=== PATIENT | female | born 1950 | race Caucasian/White ===

== ENCOUNTER → 2016-10-15 | Outpatient (CLI) | payer OTHER, MEDICARE ==
--- NOTE | 2016-10-15 12:39 | MA ---
Screening Digital Mammogram With Tomosynthesis Clinical Indications: Routine screening. Technique: Standard digital cephalocaudal and tomosynthesis mediolateral oblique projections are obt ained. The digital images are processed by the [employer] computer aided detection system. Comparison: September 2015, August 2014 and July 2013 Breast density: C; The breast tissue is heterogeneously dense, which could obscure detection of small masses. Findings: CAD was reviewed. No suspicious findings are identified. Impression: Negative mammogram. BI-RADS 1. Recommendation: Routine screening is recommended in one year, as long as physical examination is moni ign in this patient with moderately dense breast parenchyma. [facility] will send a result letter to the patient. Negative mammography should not preclude additional workup of a clinically suspicious finding. The patient's information is entered into a reminder system with a target due date for her next mammo gram.
== END ==
LOC: FIMAGING 10:24
PROVIDERS: ATTEND Internal Medicine
DX: Z12.31 Encounter for screening mammogram for malignant neoplasm of breast (principal)
CPT/HCPCS: G0202

== ENCOUNTER → 2017-12-08 | Outpatient (CLI) | payer OTHER, MEDICARE | LOC: FIMAGING 11:53 | PROVIDERS: ATTEND Internal Medicine | DX: Z12.31 Encounter for screening mammogram for malignant neoplasm of breast (principal) ==

== ENCOUNTER → 2018-07-20 | Outpatient (CLI) | payer OTHER, MEDICARE ==
[~2018-07-20] MED LIST: IOPAMIDOL (ISOVUE 370) 100 ML BTL IV ONE
== END ==
LOC: FIMAGING 10:57
PROVIDERS: ATTEND Internal Medicine
DX: R91.8 Other nonspecific abnormal finding of lung field (principal); R06.00 Dyspnea, unspecified; R09.02 Hypoxemia
CPT/HCPCS: 71275; Q9967; 82565-PO

== ENCOUNTER → 2018-07-28 | Outpatient (CLI) | payer OTHER, MEDICARE ==
--- NOTE | 2018-07-28 17:40 | ECHO ---
[email or web address] [place] [id number] Main: [phone] Fax: Transthoracic Echocardiogram Name: SHERIDAN SOMMER MR#: [id number] Study Date: 07/28/2018 Study Time: 02:02 PM Date of : 1950 Age: 67 year(s) Height: 165.1 cm (65 in.) Weight: 61.24 kg (135 lb.) BSA: 1.67 m2 Gender: Female Examination: Echo Indication: Shortness of breath, hypoxemia Image Quality: Adequate Contrast: Requested by: Noel Carrera BP: / Heart Rate: Rhythm: Indication: Shortness of breath, hypoxemia Procedure Staff Dope Mixer: Tori Liao [facility] Reading Physician: Juan Morales MD Requesting Provider: Conclusions: Normal size left ventricle. No LV hypertrophy. Normal global systolic LV function. EF is 69 %. No regional wall motion abnormality. Normal diastolic LV function. Normal size right ventricle. Normal RV function. The left atrium is normal in size. The right atrium is normal in size. The mitral valve is normal in appearance and function. Trivial mitral valve regurgitation. No mitral stenosis is present. The aortic valve is tri-leaflet and functions normally. Mild aortic valve regurgitation is present. No aortic valve stenosis is present. The tricuspid valve is normal in appearance and function. Mild to moderate tricuspid valve regurgitation. Right ventricular systolic pressure measures 28mmHg. The pulmonary artery pressure is normal. The pulmonic valve is normal in appearance and function. There is no pulmonic regurgitation seen. The aorta is normal. Normal size aortic root measuring 2.4 cm. Normal size and course of the IVC. No pericardial effusion. A cause for the patient's hypoxemia is not identified on the basis of this study. Findings as noted. Measurements: Patient: SHERIDAN SOMMER Study Date: 07/28/2018 Page 1 of 3 02:02 PM Chambers Valvular Assessment AV/MV Valvular Assessment TV/PV Normal Normal Normal Name Value Range Name Value Range Name Value Range Ao Jenny (MM): 2.4 cm (2.2 cm-3.7 AV Vmax: 1.33 m/s (1 m/s-1.7 TR Vmax: 2.41 mm/s ( - ) cm) m/s) TR PGmax: 23 mmHg ( - ) IVSd (2D): 0.7 cm (0.6 cm-1.1 AV maxP mmHg ( - ) syst. PAP: 28 mmHg ( - ) cm) LVOT Vmax: 1.08 m/s (0.7 m/s-1.1 PV Vmax: 0.83 m/s (0.6 m/s-0.9 LVDd (2D): 3.5 cm (3.9 cm-5.3 m/s) m/s) cm) RIC (Vmax): 2.3 cm2 ( - ) PV PGmax: 3 mmHg ( - ) LVDs (2D): 2.3 cm (2.1 cm-4 AR (PHT): 880 ms ( - ) cm) MV E Vmax: 0.82 m/s ( - ) LVPWd (2D): 0.8 cm ( - ) MV A Vmax: 0.81 m/s ( - ) LVOTd 1.9 cm 1.9 cm mm MV E/A: 1.01 ( - ) LVEF (BP): 69 % (>=55 %) RVDd(2D): 2.7 cm (1.9 cm-3.8 cmmm) Continued Measurements: Chambers Valvular Assessment AV/MV Valvular Assessment TV/PV Name Value Name Value Name Value LADs Lon.5 cm MV DecTime: 215 m/s CVP (est.): 5 mmHg LA Area: 13.9 cm2 MV E' Septal: 0.09 m/s LA Volume: 33 ml MV E/E' Septal: 9.30 LA Volume Index: 19.8 ml/m2 MV E/E' Lateral: 5.80 TAPSE: 2.0 cm AR Vmax: 3.97 cm/s RA Area: 12.8 cm2 Findings: Left Ventricle: Normal size left ventricle. No LV hypertrophy. Normal global systolic LV function. EF is 69 %. No regional wall motion abnormality. Normal diastolic LV function. Right Ventricle: Normal size right ventricle. Normal RV function. Left Atrium: The left atrium is normal in size. Right Atrium: The right atrium is normal in size. Mitral Valve: The mitral valve is normal in appearance and function. Trivial mitral valve regurgitation. No mitral stenosis is present. Aortic Valve: The aortic valve is tri-leaflet and functions normally. Mild aortic valve regurgitation is present. No aortic valve stenosis is present. Tricuspid Valve: The tricuspid valve is normal in appearance and function. Mild to moderate tricuspid valve regurgitation. Right ventricular systolic pressure measures 28mmHg. The pulmonary artery pressure is normal. Pulmonic Valve: The pulmonic valve is normal in appearance and function. There is no pulmonic regurgitation seen. Aorta: The aorta is normal. Normal size aortic root measuring 2.4 cm. IVC: Normal size and course of the IVC. Pericardium: No pericardial effusion. Patient: SHERIDAN SOMMER Study Date: 07/28/2018 Page 2 of 3 02:02 PM (No Signature Object) Patient: SHERIDAN SOMMER Study Date: 07/28/2018 Page 3 of 3 02:02 PM [id number]
== END ==
LOC: FCP 13:45
PROVIDERS: ATTEND Internal Medicine Interventional Cardiology
DX: R06.02 Shortness of breath (principal); R09.02 Hypoxemia

== ENCOUNTER → 2018-08-13 | Outpatient (CLI) | payer OTHER, MEDICARE | LOC: BHFA 13:15 | PROVIDERS: ATTEND Internal Medicine Cardiovascular Disease | DX: R06.02 Shortness of breath (principal); I10 Essential (primary) hypertension ==

== ENCOUNTER → 2018-11-19 | Outpatient (CLI) | payer OTHER, MEDICARE | LOC: CIMAGING 13:13 | PROVIDERS: ATTEND Internal Medicine Pulmonary Disease | DX: R91.1 Solitary pulmonary nodule (principal) | CPT/HCPCS: 71250-PO ==

== ENCOUNTER → 2019-01-24 | Outpatient (CLI) | payer OTHER, MEDICARE | LOC: CIMAGING 12:47 | PROVIDERS: ATTEND Internal Medicine | DX: Z12.31 Encounter for screening mammogram for malignant neoplasm of breast (principal) ==